=== PATIENT | female | born 1995 | race Caucasian/White ===

== ENCOUNTER 2017-01-02 17:40 | Emergency (ER) | payer OTHER ==
[~2017-01-02] VITALS: Ht 154.9 cm; Wt 79.4 kg
--- NOTE | 2017-01-02 18:13 | Urgent Treatment Center Report ---
History of Present Issue Date/Time Seen by Provider 01/02/17 1802 Visit Reason Pt arrived:Walked Presenting Problem:FELL AT THE CLINIC ON DECEMBER 15 W/O SEEING CARE R/T LT ANKLE INJURY. LT ANKLE CONTINUES TO HURT AND WITH SLIGHT SWELLING. Location if Accident:LT ANKLE Onset of symptoms date/time:12/15/16/ or onset unknown for:MEDICAL HX UNKNOWN Have you (or family members/close friends) recently traveled outside the [place]? N If Yes, where/when: Have you had exposure to infectious disease within the past month? TB? Other? Specify: Patient states that she was stepping off a curve at the clinic on 12/15 states that when she fell on left ankle, ankle rolled and she felt a "pop" states that gagan was sore and hurt with some mild swelling. States that she became worried when it has been a couple weeks since the fall and she had not seen a doctor so her father talked her into coming here ALLERGIES Coded Allergies: No Known Allergies (10/24/15) History Medical History General CAD? No Angina: No OR: No Hypertension? No Hyperlipidemia? No CHF? No DVT? No PE? No COPD? No Asthma? No Anemia? No GERD? No Gastric ulcers? No GI Bleed? No Hernia? No Thyroid Problems? No Hypothyroidism? No CVA? No Seizures? No Diabetes? No Renal Insuffiency? No UTI? No Stones? No BPH? No GB Disease: No Nephritic Syndrome? No Asplenia? No Hepatitis? No Sickle Cell Disease? No Arthritis? No Migraines? No Cataracts? No Glaucoma? No MRSA? No HIV? No TB? No Anxiety? No Depression? No Cancer? No More? No Immunization HX Ped.Immunizations UTD Yes DT/Tetanus 5-10 Years Ago Flu 2015-16FSN Pneumonia Never Had Surgical Hx Previous Surgery?Y WISDOM TEETH Family History Family HX Diabetes Yes CAD Yes Hypertension Yes Hyperlipidemia Yes Cancer Yes TB No Social History Smoking Hx Smoker: Never Smoker Tobacco: No Alcohol Alcohol: No Review of Systems All Other Systems Reviewed and Negative Musculoskeletal other (left ankle pain) Comment Pain and swelling in left ankle after falling on 12/15 Physical Exam Vital Signs Vital Signs Date Time Temp Pulse Resp B/P Pulse O2 O2 Flow FiO2 Ox Delivery Rate 01/02 1753 98.7 83 20 135/87 General Appearance normal appearance, WD/WN, no apparent distress Respiratory Status Yes: trachea midline, chest symmetrical, non tender chest. No: respiratory distress. Cardiovascular normal exam, regular rate/rhythm, no peripheral edema, no gallop Neurologic alert, ad operations specialist II-XII nml as tested, normal exam, no motor/sensory deficits, oriented x 3 Medical Decision Making LABS/Meds/Orders Pt receiving controlled substance in ED? No Results/Orders Orders Procedure Date/time Status UTC STABILIZE JOINT/AREA 01/03 1812 Active ANKLE-LT-3 VIEWS 01/02 175 Active XRAY/CT/US XRAY/CT/US XRAY ankle XR interpretation by reviewed by me Xray Results normal/NAD, no fracture seen Departure Departure Disposition DC Home or Self Care(routine) Clinical Impression Primary Impression: Ankle sprain Qualifiers: Encounter type: initial encounter Involved ligament of ankle: unspecified ligament Laterality: left Qualified Code: S93.402A - Sprain of unspecified ligament of left ankle, initial encounter Condition STABLE Referrals Mica Rhodes MD (Family) Patrick Choi MD: 2 Days-Call Office IF NO IMPROVEMENT IN 2-4 DAYS SERGIO GRAHAM, EMRE MANRIQUE IF NO IMPROVEMENT IN SYMPTOMS 2-4 DAYS Patient Instructions Ankle Sprain, DI for Ankle Sprain, How To Perform RICE ( Rest, Ice, Compress, Elevate) Additional Instructions RICE as instructed Follow up with family doctor and follow up with Orthopedics if no improvement in symptoms Return if needed Over the counter Motrin or Tylenol as needed for pain Discharge Counseling Counseled pt/family regarding diagnosis, test results, medications/RX, home care at 1813
[2017-01-02 18:17] VITALS: BP 135/87
--- NOTE | 2017-01-02 18:30 | RADIOLOGY REPORT PS360 ---
ANKLE-LT-3 VIEWS HISTORY: ankle pain ORDERING PHYSICIAN: JULIA PULIDO APRN PATIENT AGE: 21 years COMPARISON: None FINDINGS: No fracture or dislocation. No lytic or blastic change. There is normal mineralization.. The joint spaces are well-preserved. No significant degenerative/arthritic changes. No erosive changes evident. There is a small calcific density toward the base of the cuboid seen on the lateral view nonspecific and may be due to small accessory center of ossification IMPRESSION: No definite acute finding. Please see above for detail. Correlate clinically as to probable accessory center of ossification at the base of the cuboid
== END 2017-01-02 18:18 | disposition home or self-care (01) ==
LOC: UTC 17:40
DX: S93.402A Sprain of unspecified ligament of left ankle, initial encounter (principal); X50.1XXA Overexertion from prolonged static or awkward postures, initial encounter; Y92.481 Parking lot as the place of occurrence of the external cause

== ENCOUNTER → 2017-06-27 | Outpatient (CLI) | payer OTHER ==
[~2017-06-27] MED LIST: BACTRIM DS 8001 TA1 PO; FLONASE 50 MCG16 GM; MEDROL 4MG. DOSE4 MG PO; TRIAMCINOL30 GM/TUBE TP; ZITHROMAX Z PA250 MG PO
--- NOTE | 2017-06-28 15:44 | RADIOLOGY REPORT PS360 ---
CT SINUS (MAX-FACIAL W/O CONT) COMPARISON: None HISTORY: Dizziness, suspect sinusitis TECHNIQUE: Multiaxial scans of the peroneal sinuses were obtained. Sagittal and coronal reformats were evaluated as well. FINDINGS: The mastoids are clear. Both internal auditory canals appear normal. There is a small mucus retention cyst floor and posterior wall of the left neck for sinus measuring 1.4 x 1.9 cm. The right measures size is clear. The ethmoid frontal and sphenoid sinuses are clear. There is a small zora bullosa left middle turbinate. The O MU is patent bilaterally. IMPRESSION: Small mucus retention cyst left maxillary sinus otherwise unremarkable study
== END ==
LOC: RAD 13:57
DX: R42 Dizziness and giddiness (principal); Z87.09 Personal history of other diseases of the respiratory system